=== PATIENT | male | born 1950 | race Caucasian/White ===

== ENCOUNTER 2024-02-14 13:34 | Day surgery (SDC) | payer MEDICARE, OTHER ==
[~2024-02-14 13:34] MED LIST: Brimonidine 0.2% Ophth Soln 5 ML Bottle EYELF SCH; Cefuroxime 10 MG/ML SYRINGE EYELF SCH; Lidocaine 1% PF 2 ML SDV INJECT SCH; Phenylephrine 2.5% Ophth Soln 2 ML Bot EYELF SCH; Pilocarpine 4% Ophth Soln 15 ML Bot EYELF SCH; Polymyxin B/Trimethoprim 10 ML Bottle EYELF SCH; Tetracaine HCl/PF 0.5% 4 ML Bottle EYEBOTH SCH; Tropicamide 1% Ophth Soln 15 ML Bottle EYELF SCH
[2024-02-14] MEDS: Polymyxin B/Trimethoprim 10 ML Bottle EYERT SCH (14:26)
[2024-02-14] MEDS: Brimonidine 0.2% Ophth Soln 5 ML Bottle EYERT SCH (14:32)
[2024-02-14] MEDS: Phenylephrine 2.5% Ophth Soln 2 ML Bot EYERT SCH (14:37)
[2024-02-14] MEDS: Tropicamide 1% Ophth Soln 3 ML Bottle EYERT SCH (14:41)
[2024-02-14] MEDS ORDERED: Midazolam 1 MG/ML 2 ML SDV ONE (15:17)
[2024-02-14] MEDS: Tetracaine HCl/PF 0.5% 4 ML Bottle EYEBOTH SCH (15:38)
[2024-02-14] MEDS: Lidocaine 1% PF 2 ML SDV INJECT SCH (15:55)
[2024-02-14] MEDS: Pilocarpine 4% Ophth Soln 15 ML Bot EYERT SCH (16:08)
[2024-02-14] MEDS: Cefuroxime 10 MG/ML SYRINGE EYERT SCH (16:08)
== END 2024-02-14 16:25 | disposition home or self-care (01) ==
LOC: JD.SDS 13:34
PROVIDERS: ATTEND Ophthalmology
DX: H25.812 Combined forms of age-related cataract, left eye (principal); H02.831 Dermatochalasis of right upper eyelid; H02.834 Dermatochalasis of left upper eyelid; H35.3131 Nonexudative age-related macular degeneration, bilateral, early dry stage; H31.091 Other chorioretinal scars, right eye; H35.363 Drusen (degenerative) of macula, bilateral; J45.909 Unspecified asthma, uncomplicated; Z96.1 Presence of intraocular lens; Z79.899 Other long term (current) drug therapy; Z88.8 Allergy status to other drugs, medicaments and biological substances
CPT/HCPCS: 66984; A9270; J0697; J2250; J3490